=== PATIENT | female | born 1980 | race Caucasian/White ===

== ENCOUNTER 2016-08-23 08:30 | Emergency (ER) | payer BC ==
[2016-08-23 08:43] VITALS: BP 128/92
[2016-08-23] MEDS ORDERED: Lidocaine 2% PF * 5 ML VIAL INJ ONE (10:09)
--- NOTE | 2016-08-23 11:04 | UC ---
Hand/Wrist HPI - HPI Summary HPI Summary: RIGHT INDEX FINGER, DIAGNOSED WITH PARONYCHIA, SEEN BY [facility] 08/17/16, GIVEN CEFDINIR. SYMPTOMS HAVE WORSENED SINCE TREATMENT. TETANUS < 6 YRS AGO. NO FEVER. NO PAIN WITH FINGER FLEXION OR EXTENSION. - History Of Current Complaint Chief Complaint: UCSkin Stated Complaint: SWOLLEN FINGER Time Seen by Provider: 08/23/16 10:00 Hx Obtained From: Patient, Family/Spa Manager Hx Last Menstrual Period: 08/16/16 Onset/Duration: Gradual Onset, Lasting Weeks, Still Present Severity Initially: Mild Severity Currently: Moderate Pain Intensity: 0 Pain Scale Used: 0-10 Numeric Character Of Pain: Dull, Aching Aggravating Factor(s): Other - TOUCH Alleviating: OTC Meds Related History: Dominant Hand Right - Allergies/Home Medications Allergies/Adverse Reactions: Allergies Allergy/AdvReac Type Severity Reaction Status Date / Time No Known Allergies Allergy Verified 08/23/16 08:34 Home Medications: Home Medications Ibuprofen TAB* [Advil TAB*] 600 mg PO PRN 08/23/16 [History] PMH/Surg Hx/FS Hx/Imm Hx Previously Healthy: Yes Other History Of: Negative For: HIV, Hepatitis B, Hepatitis C, Anticoagulant Therapy - Surgical History Surgical History: Yes Surgery Procedure, Year, and Place: eye surgery - Family History Known Family History: Positive: Unknown - She is adopted. - Social History Occupation: Employed Full-time Lives: With Family Alcohol Use: Occasionally Substance Use Type: None Smoking Status (MU): Former Smoker Amount Used/How Often: x 15 years at worse 1/2 ppd. - Immunization History Most Recent Influenza Vaccination: never Most Recent Tetanus Shot: unknown Most Recent Pneumonia Vaccination: never Review of Systems Constitutional: Negative Skin: Other - PAIN SWELLING IN RIGHT INDEX FINGER Eyes: Negative ENT: Negative Respiratory: Negative Cardiovascular: Negative Gastrointestinal: Negative Genitourinary: Negative Motor: Negative Neurovascular: Negative Musculoskeletal: Arthralgia, Edema - RIGHT INDEX FINGER CUTICLE, Myalgia Neurological: Negative Psychological: Negative All Other Systems Reviewed And Are Negative: Yes Physical Exam Triage Information Reviewed: Yes Appearance: Well-Appearing, Well-Nourished, Pain Distress Vital Signs: Initial Vital Signs Temp 98.6 F 08/23/16 08:36 Pulse 79 08/23/16 08:36 Resp 18 08/23/16 08:36 BP 128/92 08/23/16 08:36 Pulse Ox 100 08/23/16 08:36 Vital Signs Reviewed: Yes Eye Exam: Normal ENT Exam: Normal ENT: Positive: Normal ENT inspection Dental Exam: Normal Neck exam: Normal Neck: Positive: Supple, Nontender Respiratory Exam: Normal Respiratory: Positive: Chest non-tender, Lungs clear, Normal breath sounds Cardiovascular Exam: Normal Cardiovascular: Positive: RRR, No Murmur, Pulses Normal, Brisk Capillary Refill Abdominal Exam: Normal Musculoskeletal Exam: Normal Musculoskeletal: Positive: Strength Intact Neurological Exam: Normal Psychological Exam: Normal Psychological: Positive: Normal Response To Family Hand/Wrist Course/Dx - Differential Dx/Diagnosis Differential Diagnosis/HQI/PQRI: Cellulitis, Infection, Paronychia, Sprain, Strain Provider Diagnoses: PARONYCHIA RIGHT SECOND FINGER Discharge - Discharge Plan Condition: Stable Disposition: HOME Prescriptions: Amoxicillin/Clavulanate TAB* [Augmentin TAB 875*] 875 mg PO BID #20 tab Patient Education Materials: Paronychia (ED) Forms: *Work Release Referrals: Carla Paez MD [Primary Care Provider] - Darnell Mayorga MD [Medical Doctor] - Images Hands: 1 - PARONYCHIA HERE
== END 2016-08-23 10:52 | disposition home or self-care (01) ==
LOC: UCEAST 08:30
DX: L03.011 Cellulitis of right finger (principal); Z87.891 Personal history of nicotine dependence
CPT/HCPCS: 87070; 87205; 87640; 87641; 99212; G0463

== ENCOUNTER 2016-09-23 07:19 | Emergency (ER) | payer BC ==
[2016-09-23 07:49] VITALS: BP 142/92
--- NOTE | 2016-09-23 07:54 | UC ---
Hand/Wrist HPI - HPI Summary HPI Summary: ONSET OF PAIN, SWELLING AND REDNESS RIGHT 4TH FINGER LAST NIGHT. HAD PARONYCHIA IN RIGHT 2ND FINGER A MONTH AGO. PT DENIES BITING HER NAILS. DOES NOT AGGRESSIVELY MANICURE. WEARS GLOVES ALL DAY AT WORK. - History Of Current Complaint Chief Complaint: UCUpperExtremity Stated Complaint: FINGER COMPLAINT Time Seen by Provider: 09/23/16 07:44 Hx Obtained From: Patient Hx Last Menstrual Period: ended 09/16/16 Onset/Duration: Sudden Onset, Lasting Hours, Still Present Severity Initially: Moderate Severity Currently: Moderate Pain Intensity: 7 Pain Scale Used: 0-10 Numeric Character Of Pain: Dull, Aching Aggravating Factor(s): Other - TOUCH Associated Signs And Symptoms: Positive: Swelling, Redness - Allergies/Home Medications Allergies/Adverse Reactions: Allergies Allergy/AdvReac Type Severity Reaction Status Date / Time No Known Allergies Allergy Verified 08/23/16 08:34 PMH/Surg Hx/FS Hx/Imm Hx Previously Healthy: Yes Other History Of: Negative For: HIV, Hepatitis B, Hepatitis C, Anticoagulant Therapy - Surgical History Surgical History: Yes Surgery Procedure, Year, and Place: eye surgery - Family History Known Family History: Positive: Unknown - She is adopted. - Social History Alcohol Use: Occasionally Substance Use Type: None Smoking Status (MU): Former Smoker Amount Used/How Often: x 15 years at worse 1/2 ppd. - Immunization History Most Recent Influenza Vaccination: never Most Recent Tetanus Shot: unknown Most Recent Pneumonia Vaccination: never Review of Systems Constitutional: Negative Skin: Other - REDNESS RIGHT 4TH FINGER Respiratory: Negative Cardiovascular: Negative Gastrointestinal: Negative All Other Systems Reviewed And Are Negative: Yes Physical Exam Triage Information Reviewed: Yes Appearance: Well-Appearing, No Pain Distress, Well-Nourished Vital Signs: Initial Vital Signs Temp 98.6 F 09/23/16 07:29 Pulse 92 09/23/16 07:29 Resp 18 09/23/16 07:29 BP 142/92 09/23/16 07:29 Pulse Ox 99 09/23/16 07:29 Vital Signs Reviewed: Yes Eyes: Positive: Conjunctiva Clear ENT: Positive: Hearing grossly normal Neck: Positive: Supple Respiratory: Positive: No respiratory distress, No accessory muscle use Cardiovascular: Positive: Pulses Normal Abdomen Description: Positive: Soft Musculoskeletal: Positive: ROM Intact, No Edema Neurological: Positive: Alert Psychological: Positive: Age Appropriate Behavior Skin: Positive: Other - ERYTHEMA, SWELLING AND TENDERNESS RIGHT 4TH FINGER MEDIAL SIDE Hand/Wrist Course/Dx - Differential Dx/Diagnosis Provider Diagnoses: PARONYCHIA RIGHT 4TH FINGER Discharge - Discharge Plan Condition: Stable Disposition: HOME Prescriptions: Amoxicillin/Clavulanate TAB* [Augmentin TAB 875*] 875 mg PO BID #20 tab Patient Education Materials: Paronychia (ED) Forms: *Work Release Referrals: Carla Paez MD [Primary Care Provider] - If Needed
== END 2016-09-23 08:15 | disposition home or self-care (01) ==
LOC: UCEAST 07:19
DX: L03.011 Cellulitis of right finger (principal); Z87.891 Personal history of nicotine dependence
CPT/HCPCS: 99212; G0463

== ENCOUNTER 2017-10-08 14:32 | Emergency (ER) | payer BC ==
[2017-10-08 15:18] LABS: ABS Basophils 0 10^3/ul (0-0.2); ABS Eosinophils 0.2 10^3/ul (0-0.6); ABS Lymphocytes 1.6 10^3/ul (1.0-4.8); ABS Monocytes 0.7 10^3/ul (0-0.8); ABS Neutrophils 13.7 10^3/ul (1.5-7.7); ABS Nucleated RBC 0 10^3/ul; Eosinophil % 1.4 % (0-6); Hematocrit 34 % (35-47); Hemoglobin 11.6 g/dl (12.0-16.0); Mean Corpuscular HGB Conc 34 g/dl (31-36); Mean Corpuscular Hemoglobin 29 pg (27-31); Mean Corpuscular Volume 85 fL (80-97); Mean Platelet Volume 7.2 um3 (7.4-10.4); Nucleated Red Blood Cells % 0; Platelet Count 277 10^3/ul (150-450); Red Blood Count 4.01 10^6/ul (4.00-5.40); Red Cell Distribution Width 13 % (10.5-15); White Blood Count 16.2 10^3/ul (3.5-10.8)
[2017-10-08 15:30] LABS: INR 0.92 (0.77-1.02)
[2017-10-08 15:36] LABS: EGFR Non-African American 103.9 (>60)
--- NOTE | 2017-10-08 15:48 | RAD ---
INDICATION: 10 week 5 day with bleeding. History of IVF. History of early demise of twin COMPARISON: None TECHNIQUE: Transvaginal scans were performed for evaluation FINDINGS: There is a early intrauterine gestation with confirmation of the pole, yolk sac, movement, and cardiac activity of 167 beats for minute. The crown-rump length corresponds to a 11 week 0 day gestation in sac size to a 10 week 6 day gestation. There is a small hypoechoic focus adjacent to the gestational sac which may represent involuting second gestation or represent a small focus of subchorionic hemorrhage. This measures 1.9 x 1.1 x 1.6 cm. The right ovary measures 5.4 x 2.6 x 2.9 cm and left ovary 5.0 x 2.6 x 4.4 centers. There is a corpus luteum cyst measuring 2.0 cm IMPRESSION: EARLY INTRAUTERINE GESTATION AT 11 WEEKS 0 DAYS WITH CONFIRMATION OF CARDIAC ACTIVITY. POSSIBLE SMALL SUBCHORIONIC HEMORRHAGE (SEE ABOVE). RECOMMEND FOLLOW-UP
[2017-10-08 16:24] LABS: Urine Appearance Clear; Urine Blood 3+ (Negative); Urine Color Yellow; Urine Ketones Negative (Negative); Urine Protein Negative (Negative); Urine Red Blood Cell 3+(>10/hpf) (Absent); Urine Specific Gravity 1.009 (1.010-1.030); Urine Urobilinogen Negative (Negative); Urine White Blood Cell 2+(11-20/hpf) (Absent)
--- NOTE | 2017-10-08 16:50 | ED ---
- HPI Summary HPI Summary: Patient is a 29-year-old female who presents emergency department for light vaginal bleeding in early . Pt. currently follows with an IVF specialist in [place]. She states she has been having weekly ultrasounds and has been going well thus far. Pt. states she had an episode of light bleeding this afternoon. She states since bleeding has reduced. She denies abd. pain or cramping. Denies recent illness or urinary symptoms. Pt. notes she has never carried a to full term. Symptoms are moderate in severity. No current modifying factors. Pt. has an apt. with her OB tomorrow. - History of Current Complaint Chief Complaint: EDOBProblems Stated Complaint: VAGINAL BLEEDING/11 WKS PREG Time Seen by Provider: 10/08/17 16:02 Hx Obtained From: Patient Pain Intensity: 0 - Assessment Hx Now: No - Allergies/Home Medications Allergies/Adverse Reactions: Allergies Allergy/AdvReac Type Severity Reaction Status Date / Time No Known Allergies Allergy Verified 10/08/17 14:46 Home Medications: Home Medications NK [No Home Medications Reported] 10/08/17 [History Confirmed 10/08/17] PMH/Surg Hx/FS Hx/Imm Hx Previously Healthy: Yes Endocrine/Hematology History: Denies: Hx Anticoagulant Therapy, Hx Diabetes, Hx Thyroid Disease Cardiovascular History: Denies: Hx Congestive Heart Failure, Hx Deep Vein Thrombosis, Hx Hypertension , Hx Myocardial Infarction, Hx Pacemaker/ICD Respiratory History: Denies: Hx Asthma, Hx Chronic Obstructive Pulmonary Disease (COPD), Hx Lung Cancer, Hx Pneumonia, Hx Pulmonary Embolism GI History: Denies: Hx Gall Bladder Disease, Hx Gastrointestinal Bleed, Hx Ulcer, Hx Urosepsis History: Denies: Hx Kidney Stones, Hx Renal Disease Neurological History: Denies: Hx Dementia, Hx Migraine, Hx Seizures, Hx Transient Ischemic Attacks (TIA) Psychiatric History: Reports: Hx Anxiety Denies: Hx Depression, Hx Schizophrenia, Hx Bipolar Disorder - Surgical History Surgery Procedure, Year, and Place: eye surgery Infectious Disease History: No Infectious Disease History: Denies: Hx Clostridium Difficile, Hx Hepatitis, Hx Human Immunodeficiency Virus (HIV), Hx of Known/Suspected MRSA, Hx Shingles, Hx Tuberculosis, Hx Known/ Suspected VRE, Hx Known/Suspected VRSA, History Other Infectious Disease, Traveled Outside the [place] in Last 30 Days - Family History Known Family History: Positive: Unknown - She is adopted. - Social History Occupation: Employed Full-time Lives: With Family Alcohol Use: Occasionally Substance Use Type: Reports: None Smoking Status (MU): Former Smoker Amount Used/How Often: x 15 years at worse 1/2 ppd. Review of Systems Constitutional: Negative Cardiovascular: Negative Respiratory: Negative Gastrointestinal: Negative Positive: other - vaginal bleeding. Negative: burning, dysuria All Other Systems Reviewed And Are Negative: Yes Physical Exam - Physical Exam Triage Information Reviewed: Yes Vital Signs Reviewed: Yes Appearance: Positive: Well-Appearing - Pt. sitting in chair in NAD. S.O present. Skin: Positive: Warm, Dry Head/Face: Positive: Normal Head/Face Inspection Eyes: Positive: Normal, EOMI Neck: Positive: Supple Respiratory/Lung Sounds: Positive: Clear to Auscultation, Breath Sounds Present Cardiovascular: Positive: Normal, RRR Neurological: Positive: Normal, CN Intact II-III Psychiatric: Positive: Affect/Mood Appropriate Diagnostics - Vital Signs Vital Signs Temp Pulse Resp BP Pulse Ox 10/08/17 14:41 99.8 F 107 10 143/93 100 - Laboratory Lab Results: Lab Results 10/08/17 10/08/17 10/08/17 Range/Units 15:06 15:06 15:06 WBC 16.2 H (3.5-10.8) 10^3/ul RBC 4.01 (4.00-5.40) 10^6/ul Hgb 11.6 L (12.0-16.0) g/dl Hct 34 L (35-47) % MCV 85 (80-97) fL MCH 29 (27-31) pg MCHC 34 (31-36) g/dl RDW 13 (10.5-15) % Plt Count 277 (150-450) 10^3/ul MPV 7.2 L (7.4-10.4) um3 Neut % (Auto) 84.1 H (38-83) % Lymph % (Auto) 10.0 L (25-47) % [place] % (Auto) 4.4 (0-7) % Eos % (Auto) 1.4 (0-6) % Baso % (Auto) 0.1 (0-2) % Absolute Neuts (auto) 13.7 H (1.5-7.7) 10^3/ul Absolute Lymphs (auto) 1.6 (1.0-4.8) 10^3/ul Absolute Monos (auto) 0.7 (0-0.8) 10^3/ul Absolute Eos (auto) 0.2 (0-0.6) 10^3/ul Absolute Basos (auto) 0 (0-0.2) 10^3/ul Absolute Nucleated RBC 0 10^3/ul Nucleated RBC % 0 INR (Anticoag Therapy) 0.92 (0.77-1.02) APTT 27.9 (26.0-36.3) seconds Sodium 134 L (135-145) mmol/L Potassium 4.0 (3.5-5.0) mmol/L Chloride 105 (101-111) mmol/L Carbon Dioxide 23 (22-32) mmol/L Anion Gap 6 (2-11) mmol/L BUN 9 (6-24) mg/dL Creatinine 0.64 (0.51-0.95) mg/dL Est GFR ( Amer) 125.7 (>60) Est GFR (Non-Af Amer) 103.9 (>60) BUN/Creatinine Ratio 14.1 (8-20) Glucose 86 (70-100) mg/dL Calcium 9.5 (8.6-10.3) mg/dL Total Bilirubin 0.30 (0.2-1.0) mg/dL AST 13 (13-39) U/L ALT 14 (7-52) U/L Alkaline Phosphatase 71 (34-104) U/L Total Protein 7.0 (6.4-8.9) g/dL Albumin 4.0 (3.2-5.2) g/dL Globulin 3.0 (2-4) g/dL Albumin/Globulin Ratio 1.3 (1-3) Beta HCG, Quant 287262.00 mIU/mL Urine Color Urine Appearance Urine pH (5-9) Ur Specific [place] (1.010-1.030) Urine Protein (Negative) Urine Ketones (Negative) Urine Blood (Negative) Urine Nitrate (Negative) Urine Bilirubin (Negative) Urine Urobilinogen (Negative) Ur Leukocyte Esterase (Negative) Urine WBC (Auto) (Absent) Urine RBC (Auto) (Absent) Ur Squamous Epith Cells (Absent) Urine Bacteria (Absent) Urine Glucose (Negative) Blood Type Antibody Screen 10/08/17 10/08/17 Range/Units 15:06 15:41 WBC (3.5-10.8) 10^3/ul RBC (4.00-5.40) 10^6/ul Hgb (12.0-16.0) g/dl Hct (35-47) % MCV (80-97) fL MCH (27-31) pg MCHC (31-36) g/dl RDW (10.5-15) % Plt Count (150-450) 10^3/ul MPV (7.4-10.4) um3 Neut % (Auto) (38-83) % Lymph % (Auto) (25-47) % [place] % (Auto) (0-7) % Eos % (Auto) (0-6) % Baso % (Auto) (0-2) % Absolute Neuts (auto) (1.5-7.7) 10^3/ul Absolute Lymphs (auto) (1.0-4.8) 10^3/ul Absolute Monos (auto) (0-0.8) 10^3/ul Absolute Eos (auto) (0-0.6) 10^3/ul Absolute Basos (auto) (0-0.2) 10^3/ul Absolute Nucleated RBC 10^3/ul Nucleated RBC % INR (Anticoag Therapy) (0.77-1.02) APTT (26.0-36.3) seconds Sodium (135-145) mmol/L Potassium (3.5-5.0) mmol/L Chloride (101-111) mmol/L Carbon Dioxide (22-32) mmol/L Anion Gap (2-11) mmol/L BUN (6-24) mg/dL Creatinine (0.51-0.95) mg/dL Est GFR ( Amer) (>60) Est GFR (Non-Af Amer) (>60) BUN/Creatinine Ratio (8-20) Glucose (70-100) mg/dL Calcium (8.6-10.3) mg/dL Total Bilirubin (0.2-1.0) mg/dL AST (13-39) U/L ALT (7-52) U/L Alkaline Phosphatase (34-104) U/L Total Protein (6.4-8.9) g/dL Albumin (3.2-5.2) g/dL Globulin (2-4) g/dL Albumin/Globulin Ratio (1-3) Beta HCG, Quant mIU/mL Urine Color Yellow Urine Appearance Clear Urine pH 6.0 (5-9) Ur Specific [place] 1.009 L (1.010-1.030) Urine Protein Negative (Negative) Urine Ketones Negative (Negative) Urine Blood 3+ A (Negative) Urine Nitrate Negative (Negative) Urine Bilirubin Negative (Negative) Urine Urobilinogen Negative (Negative) Ur Leukocyte Esterase Negative (Negative) Urine WBC (Auto) 2+(11-20/hpf) A (Absent) Urine RBC (Auto) 3+(>10/hpf) A (Absent) Ur Squamous Epith Cells Present A (Absent) Urine Bacteria Absent (Absent) Urine Glucose Negative (Negative) Blood Type B Positive Antibody Screen Negative Result Diagrams: 10/08/17 15:06 10/08/17 15:06 Lab Statement: Any lab studies that have been ordered have been reviewed, and results considered in the medical decision making process. Course/Dx - Course Course Of Treatment: Pt. is a 37 y.o female who presents to the ER for light vaginal bleeding in early . Blood work and u/s ordered in triage. Labs show a leukocytosis of 16 suspect from early . U/A is contaminated, will send for culture. Blood type is B+. U/S read per radiology: IMPRESSION: EARLY INTRAUTERINE GESTATION AT 11 WEEKS 0 DAYS WITH CONFIRMATION OF . CARDIAC ACTIVITY. POSSIBLE SMALL SUBCHORIONIC HEMORRHAGE (SEE ABOVE). RECOMMEND FOLLOW-UP. Results discussed with pt. She will f.u with her OB tomorrow as scheduled. Pt. notes since in the ER bleeding has subsided. Advised pelvic rest and to avoid heavy lifting. Will return to ER if symptoms change or worsen. - Differential Diagnosis/HQI/PQRI: Incomplete , Missed , Spontaneous , Threatened , Intrauterine , Early - Diagnoses Provider Diagnoses: Subchorionic hemorrhage, Threatened Discharge - Sign-Out/Discharge Documenting (check all that apply): Patient Departure - Discharge Plan Condition: Good Disposition: HOME Patient Education Materials: Threatened Miscarriage (ED), Subchorionic Hemorrhage (ED) Referrals: Carla Paze MD [Primary Care Provider] - Additional Instructions: Follow up with your OB tomorrow as scheduled Pelvic rest Avoid heavy lifting Return to ER if symptoms change or worsen - Billing Disposition and Condition Condition: GOOD Disposition: Home
[2017-10-08 17:04] VITALS: BP 129/73
== END 2017-10-08 17:03 | disposition home or self-care (01) ==
LOC: ED 14:32
DX: O20.0 Threatened abortion (principal); Z3A.11 11 weeks gestation of pregnancy; Z87.891 Personal history of nicotine dependence
CPT/HCPCS: 36415; 76805; 80053; 81003; 81015; 84702; 85025; 85610; 85730; 86850; 86900; 86901; 87086; 99283

== ENCOUNTER 2018-01-14 07:23 | Emergency (ER) | payer BC ==
[2018-01-14 07:34] VITALS: BP 145/96
--- NOTE | 2018-01-14 08:07 | UC ---
Upper Extremity HPI - HPI Summary HPI Summary: 37-year-old female currently at 25 weeks gestation resents with 6 weeks of right arm pain. This has worsened over the last 2 weeks and now she is feeling some slight swelling in the hand. Most of her discomfort is in the thumb and first 3 fingers. She has a tingling numbness throughout the entire arm but worse in the hand. She has no weakness. She has not been doing anything for the discomfort. She has only seen her telegraph mechanic and physical therapy. She has done acupuncture and KT taping without much benefit. She denies any injury to the neck or arm and reports he is right-handed. 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 - History of Current Complaint Chief Complaint: UCUpperExtremity Stated Complaint: R ARM PAIN, HAND SWELLING Time Seen by Provider: 01/14/18 07:47 Hx Obtained From: Patient Hx Last Menstrual Period: ended 09/16/16 Pain Intensity: 8 - Allergies/Home Medications Allergies/Adverse Reactions: Allergies Allergy/AdvReac Type Severity Reaction Status Date / Time No Known Allergies Allergy Verified 01/14/18 07:35 Home Medications: Home Medications Pnv No.121/Iron/Folic Acid [ Multivitamin Tablet] 1 each PO DAILY WITH MEAL 01/14/18 [History Confirmed 01/14/18] PMH/Surg Hx/FS Hx/Imm Hx Previously Healthy: Yes Other History Of: Negative For: HIV, Hepatitis B, Hepatitis C, Anticoagulant Therapy - Surgical History Surgical History: Yes Surgery Procedure, Year, and Place: eye surgery - Family History Known Family History: Positive: Unknown - She is adopted., Non-Contributory - Social History Occupation: Employed Full-time Alcohol Use: None Substance Use Type: None Smoking Status (MU): Former Smoker Amount Used/How Often: x 15 years at worse 1/2 ppd. - Immunization History Most Recent Influenza Vaccination: never Most Recent Tetanus Shot: unknown Most Recent Pneumonia Vaccination: never Review of Systems All Other Systems Reviewed And Are Negative: Yes Constitutional: Positive: Negative Motor: Positive: Negative Neurovascular: Positive: Decreased Sensation Musculoskeletal: Positive: Edema, Myalgia Is Patient Immunocompromised?: No Physical Exam Triage Information Reviewed: Yes Appearance: Well-Appearing, No Pain Distress Vital Signs: Initial Vital Signs Temp 98.6 F 01/14/18 07:28 Pulse 90 01/14/18 07:28 Resp 18 01/14/18 07:28 BP 145/96 01/14/18 07:28 Pulse Ox 100 01/14/18 07:28 Vital Signs Reviewed: Yes ENT: Positive: Normal ENT inspection Respiratory: Positive: Lungs clear Cardiovascular: Positive: RRR Abdomen Description: Positive: Other: - gravid Musculoskeletal: Positive: Strength Intact, ROM Intact, Other: - Perhaps trace edema in the right hand, no thenar/hypothenar wasting. Neurological: Positive: Alert, Other: - equlivocal Phalens/Tinels on R. Skin Exam: Normal Upper Extremity Course/Dx - Course Course Of Treatment: Pt with likely exacerbated CTS -- has not seen PMD or had EMG. Placed in cockup splint here. Referred to hand surg. Discussed following up today with telegraph mechanic for BP recheck and to discuss Gabapentin as a possible option (Preg cat C). Tx for pain now. - Differential Dx/Diagnosis Differential Diagnosis/HQI/PQRI: Other - cervical radiculopathy, compressive neuropathy, CTS Provider Diagnoses: carpal tunnel syndrome Right upper extremity. Elevated blood pressure (due to pain). 2nd trimester Discharge - Sign-Out/Discharge Documenting (check all that apply): Patient Departure All imaging exams completed and their final reports reviewed: No Studies - Discharge Plan Condition: Improved Disposition: HOME Prescriptions: HYDROcodone/ACETAMIN 5-325 MG* [[place] 5-325 TAB*] 1 tab PO Q6H PRN #12 tab MDD 4 PRN Reason: Severe Pain Patient Education Materials: Carpal Tunnel Surgery (DC) Forms: *Work Release Referrals: Carla Paez MD [Primary Care Provider] - Darnell Hairston MD [Medical Doctor] - Additional Instructions: Call your primary care doctor today to schedule an EMG test. Wear the splint especially at night. Pain medication at night. Call to schedule with the hand surgeon. Return if worse, new symptoms or other concerns. Call your telegraph mechanic today and discuss taking Gabapentin for nerve pain. - Billing Disposition and Condition Condition: IMPROVED Disposition: Home - Attestation Statements Document Initiated by Scribe: Keren
== END 2018-01-14 08:03 | disposition home or self-care (01) ==
LOC: UCEAST 07:23
DX: O26.892 Other specified pregnancy related conditions, second trimester (principal); G56.01 Carpal tunnel syndrome, right upper limb; O16.2 Unspecified maternal hypertension, second trimester; Z3A.25 25 weeks gestation of pregnancy; Z87.891 Personal history of nicotine dependence
CPT/HCPCS: 99213; G0463

== ENCOUNTER 2019-02-17 12:29 | Emergency (ER) | payer BC, MEDICAID ==
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
[2019-02-17 14:37] VITALS: BP 126/74
== END 2019-02-17 14:36 | disposition home or self-care (01) ==
LOC: ED 12:29
DX: S00.81XA Abrasion of other part of head, initial encounter (principal); V48.5XXA Car driver injured in noncollision transport accident in traffic accident, initial encounter; Y92.410 Unspecified street and highway as the place of occurrence of the external cause; I10 Essential (primary) hypertension; F41.9 Anxiety disorder, unspecified; F32.9 Major depressive disorder, single episode, unspecified; Z87.891 Personal history of nicotine dependence; Z79.899 Other long term (current) drug therapy
CPT/HCPCS: 99282